=== PATIENT | female | born 1980 | race American Indian/Alaskan Native ===

== ENCOUNTER 2020-10-12 11:15 | Emergency (ER) | payer BC ==
[2020-10-12] MEDS ORDERED: ONDANSETRON 4 MG/2 ML INJ IV ONE (11:18)
[2020-10-12] MEDS ORDERED: MORPHINE 4 MG/1 ML INJ IV ONE (11:19)
--- NOTE | 2020-10-12 11:38 | Emergency Department Report ---
ED Female HPI - General Chief complaint: Abdominal Pain Stated complaint: RT SIDE FLANK PAIN Time Seen by Provider: 10/12/20 11:18 Source: patient Mode of arrival: Wheelchair Limitations: No Limitations - History of Present Illness Initial comments: Chief complaint: Pelvic pain, feeling really weak HPI: This is a 40-year-old female -0-3-0 who is currently 8 weeks who presents with severe right pelvic pain for 1 day. She was referred from [facility] per EMS. concern for ectopic . Patient has had 2 miscarriages. She has had 1 ectopic requiring salpingectomy. She has tenderness in intermittent 10 out of 10 dull throbbing sharp pain. No radiation. She denies vaginal bleeding. Blood type AB+ patient was significantly tachycardic at the clinic 124 bpm Additional medical history includes anemia and asthma. MD Complaint: pelvic pain -: Gradual, days(s) (1 day) Severity: severe Severity scale (0 -10): 10 Quality: cramping, sharp, dull Consistency: intermittent Improves with: none Worsens with: none Associated Symptoms: weakness, other (Patient feels very weak) - Related Data Home Medications Medication Instructions Recorded Confirmed Last Taken Pnv No.95/Ferrous Fum/Folic AC 1 tab PO DAILY 11/03/15 11/03/15 10/28/15 [ Vitamins Tablet] Previous Rx's Medication Instructions Recorded Last Taken Type DOXYCYCLINE Hyclate [Vibramycin 100 mg PO Q12HR #14 capsule 11/03/15 Unknown Rx CAP] Ibuprofen [Motrin] 800 mg PO Q8HR PRN #30 tablet 11/03/15 Unknown Rx Methylergonovine [Methergine] 0.2 mg PO Q8HR #6 tablet 11/03/15 Unknown Rx Ondansetron [Zofran Odt] 4 mg PO Q8HR PRN #10 tab.rapdis 10/12/20 Unknown Rx Allergies Allergy/AdvReac Type Severity Reaction Status Date / Time No Known Allergies Allergy Verified 11/03/15 07:39 ED Review of Systems ROS: Stated complaint: RT SIDE FLANK PAIN Other details as noted in HPI Comment: All other systems reviewed and negative Constitutional: malaise. denies: fever Respiratory: denies: cough, orthopnea, shortness of breath Cardiovascular: denies: chest pain Gastrointestinal: abdominal pain Genitourinary: denies: urgency, dysuria, frequency, hematuria, discharge, abnormal menses, dyspareunia Musculoskeletal: denies: back pain ED Past Medical Hx - Past Medical History Previous Medical History?: Yes Hx Sickle Cell Disease: No Hx Headaches / Migraines: Yes Hx Asthma: Yes (SEASONAL) Additional medical history: Anemia, ectopic - Surgical History Past Surgical History?: Yes Additional Surgical History: Salpingectomy - Family History Family history: hypertension - Social History Smoking Status: Never Smoker Substance Use Type: None - Medications Home Medications: Home Medications Medication Instructions Recorded Confirmed Last Taken Type DOXYCYCLINE Hyclate [Vibramycin 100 mg PO Q12HR #14 capsule 11/03/15 Unknown Rx CAP] Ibuprofen [Motrin] 800 mg PO Q8HR PRN #30 tablet 11/03/15 Unknown Rx Methylergonovine [Methergine] 0.2 mg PO Q8HR #6 tablet 11/03/15 Unknown Rx Pnv No.95/Ferrous Fum/Folic AC 1 tab PO DAILY 11/03/15 11/03/15 10/28/15 History [ Vitamins Tablet] Ondansetron [Zofran Odt] 4 mg PO Q8HR PRN #10 tab.rapdis 10/12/20 Unknown Rx ED Physical Exam - General Limitations: No Limitations General appearance: alert, other (Patient appears in severe pain, she appears very uncomfortable) - Head Head exam: Present: atraumatic, normocephalic - Eye Eye exam: Present: normal appearance - ENT ENT exam: Present: mucous membranes moist - Neck Neck exam: Present: normal inspection, full ROM - Respiratory Respiratory exam: Present: normal lung sounds bilaterally. Absent: respiratory distress, wheezes, rales, rhonchi - Cardiovascular Cardiovascular Exam: Present: regular rate, normal rhythm, normal heart sounds. Absent: systolic murmur, diastolic murmur, rubs, gallop - GI/Abdominal GI/Abdominal exam: Present: soft, tenderness, guarding, rebound, normal bowel sounds. Absent: distended - Extremities Exam Extremities exam: Present: normal inspection - Neurological Exam Neurological exam: Present: alert, oriented X3 - Psychiatric Psychiatric exam: Present: normal affect, normal mood - Skin Skin exam: Present: warm, dry, intact, normal color. Absent: rash ED Course Vital Signs 10/12/20 10/12/20 10/12/20 11:22 11:29 11:31 Temperature Pulse Rate 88 73 Respiratory 16 37 H Rate Blood Pressure 102/61 Blood Pressure 123/77 [Right] O2 Sat by Pulse 98 100 100 Oximetry 10/12/20 10/12/20 10/12/20 11:45 11:51 12:01 Temperature 98.8 F Pulse Rate 69 66 Respiratory 33 H 15 Rate Blood Pressure 102/61 100/60 Blood Pressure [Right] O2 Sat by Pulse 100 97 Oximetry 10/12/20 10/12/20 12:15 13:32 Temperature Pulse Rate 71 68 Respiratory 18 19 Rate Blood Pressure 100/60 100/60 Blood Pressure [Right] O2 Sat by Pulse 99 100 Oximetry - Reevaluation(s) Reevaluation #1: 10/12/20 13:31 Patient does not have any abdominal tenderness on exam. She states that she feels weak and dizzy. She does not have any pain at this time. ED Medical Decision Making - Lab Data Result diagrams: 10/12/20 13:03 10/12/20 13:03 Laboratory Results - last 24 hr 10/12/20 10/12/20 10/12/20 13:03 13:03 13:03 WBC 5.6 RBC 4.45 Hgb 12.3 Hct 37.0 MCV 83 MCH 28 MCHC 33 RDW 13.6 Plt Count 187 Lymph % (Auto) 21.9 [place] % (Auto) 4.5 Eos % (Auto) 0.3 Baso % (Auto) 0.3 Lymph # (Auto) 1.2 [place] # (Auto) 0.3 Eos # (Auto) 0.0 Baso # (Auto) 0.0 Seg Neutrophils % 73.0 H Seg Neutrophils # 4.1 Sodium 137 Potassium 3.6 Chloride 103.6 Carbon Dioxide 22 Anion Gap 15 BUN 10 Creatinine 0.6 Estimated GFR > 60 BUN/Creatinine Ratio 17 Glucose 91 Calcium 9.7 HCG, Quant 28664 H - Radiology Data Radiology results: report reviewed Patient Name: FRANCISCO JAVIER PRUITT Gender: Female Date of : 1980 Referring Provider: KISHAN ROSEN Organization: [facility] Accession Number: [id number] Requested Date: October 12, 2020 11:19 Report Status: Final Requested Procedure: 1 Procedure Description: US OB <= 14 weeks fetus Modality: US Findings Reporting MD: Jamel Cowart Dictation Time: October 12, 2020 12:17 Lan Engineer: Not available Automatic Glove Former Date: ULTRASOUND OBSTETRIC INDICATION: Right pelvic pain, history of ectopic . TECHNIQUE: Transabdominal and Transvaginal. COMPARISON: None available. FINDINGS: GESTATIONAL SAC: Well-defined oval shape and intrauterine in location. YOLK SAC: No significant abnormality. EMBRYO/FETUS: A single pole is identified without visualization of cardiac activity. - [place]-Rump Length = 0.7 cm = 6 weeks, 4 day(s). - Heart Rate = 0 beats per minute. ADNEXA: There is a 1.8 cm right corpus luteal cyst. No other significant abnormality. FREE FLUID: None. ADDITIONAL FINDINGS: A probable small area of subchorionic hemorrhage is seen measuring up to 8 mm. IMPRESSION: 1. Single intrauterine with estimated age of 6 weeks, 4 days without identification of cardiac activity. 2. Probable small area of subchorionic hemorrhage as above. 3. No other acute abnormality of the pelvis. Signer Name: Jamel Cowart MD Signed: 10/12/2020 12:17 PM Workstation Name: [id number] - Medical Decision Making 1. Threatened miscarriage, right lower quadrant pain: Ultrasound confirmed IUP. Without persistent tenderness or leukocytosis I do not suspect acute appendicitis. No vaginal bleeding. Patient is RH+. 2. Dehydration due to poor p.o. intake and nausea causing generalized weakness. 3. Fatigue due to work exhaustion. 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 No indication of anemia. H&H is normal. Patient received IV fluid therapy. Prescribed Zofran. Critical care attestation.: If time is entered above; I have spent that time in minutes in the direct care of this critically ill patient, excluding procedure time. ED Disposition Clinical Impression: Threatened miscarriage, Dehydration Disposition: DC-01 TO HOME OR SELFCARE Is pt being admited?: No Does the pt Need Aspirin: No Condition: Stable Instructions: Abdominal Pain (ED), Threatened Miscarriage Prescriptions: Ondansetron [Zofran Odt] 4 mg PO Q8HR PRN #10 tab.rapdis PRN Reason: Nausea Referrals: DIANA SOLIMAN MD [Staff Physician] - 3-5 Days
--- NOTE | 2020-10-12 13:21 | Ultrasound Report ---
ULTRASOUND OBSTETRIC INDICATION: Right pelvic pain, history of ectopic . TECHNIQUE: Transabdominal and Transvaginal. COMPARISON: None available. FINDINGS: GESTATIONAL SAC: Well-defined oval shape and intrauterine in location. YOLK SAC: No significant abnormality. EMBRYO/FETUS: A single pole is identified without visualization of cardiac activity. - [place]-Rump Length = 0.7 cm = 6 weeks, 4 day(s). - Heart Rate = 0 beats per minute. ADNEXA: There is a 1.8 cm right corpus luteal cyst. No other significant abnormality. FREE FLUID: None. ADDITIONAL FINDINGS: A probable small area of subchorionic hemorrhage is seen measuring up to 8 mm. IMPRESSION: 1. Single intrauterine with estimated age of 6 weeks, 4 days without identification of feta l cardiac activity. 2. Probable small area of subchorionic hemorrhage as above. 3. No other acute abnormality of the pelvis. Signer Name: Jamel Cowart MD Signed: 10/12/2020 1:17 PM Workstation Name: [id number]
--- NOTE | 2020-10-12 13:21 | Ultrasound Report ---
ULTRASOUND OBSTETRIC INDICATION: Right pelvic pain, history of ectopic . TECHNIQUE: Transabdominal and Transvaginal. COMPARISON: None available. FINDINGS: GESTATIONAL SAC: Well-defined oval shape and intrauterine in location. YOLK SAC: No significant abnormality. EMBRYO/FETUS: A single pole is identified without visualization of cardiac activity. - [place]-Rump Length = 0.7 cm = 6 weeks, 4 day(s). - Heart Rate = 0 beats per minute. ADNEXA: There is a 1.8 cm right corpus luteal cyst. No other significant abnormality. FREE FLUID: None. ADDITIONAL FINDINGS: A probable small area of subchorionic hemorrhage is seen measuring up to 8 mm. IMPRESSION: 1. Single intrauterine with estimated age of 6 weeks, 4 days without identification of feta l cardiac activity. 2. Probable small area of subchorionic hemorrhage as above. 3. No other acute abnormality of the pelvis. Signer Name: Jamel Cowart MD Signed: 10/12/2020 1:17 PM Workstation Name: [id number]
[2020-10-12] MEDS ORDERED: SODIUM CHLORIDE 0.9% 1000 ML 1,000 ML IV ONE (13:30)
[2020-10-12 13:34] LABS: Blood Urea Nitrogen 10 mg/dL (7-17); Calcium 9.7 mg/dL (8.4-10.2); Hemolysis Index 5
[2020-10-12 13:39] LABS: Basophils % (Auto) 0.3 % (0.0-1.8); Eosinophils % (Auto) 0.3 % (0.0-4.3); Hemoglobin 12.3 gm/dl (10.1-14.3); Lymphocytes # (Auto) 1.2 K/mm3 (1.2-5.4); Lymphocytes % (Auto) 21.9 % (13.4-35.0); Mean Corpuscular HGB Conc 33 % (30-34); Mean Corpuscular Volume 83 fl (79-97); Monocytes # (Auto) 0.3 K/mm3 (0.0-0.8); Monocytes % (Auto) 4.5 % (0.0-7.3); Platelet Count 187 K/mm3 (140-440); Red Blood Count 4.45 M/mm3 (3.65-5.03); Red Cell Distribution Width 13.6 % (13.2-15.2)
[2020-10-12 13:51] LABS: BUN/Creatinine Ratio 17
[2020-10-12] MEDS ORDERED: ACETAMINOPHEN 500 MG TAB PO ONE (13:57)
[2020-10-12 16:57] VITALS: BP 121/59
== END 2020-10-12 16:50 | disposition home or self-care (01) ==
LOC: ED 11:15
DX: O20.0 Threatened abortion (principal); O26.892 Other specified pregnancy related conditions, second trimester; E86.0 Dehydration; G43.909 Migraine, unspecified, not intractable, without status migrainosus; J45.909 Unspecified asthma, uncomplicated; Z3A.08 8 weeks gestation of pregnancy; Z90.89 Acquired absence of other organs; Z79.1 Long term (current) use of non-steroidal anti-inflammatories (NSAID); Z79.899 Other long term (current) drug therapy
CPT/HCPCS: 36415; 76801; 76817; 80048; 84702; 85025; 96361; 96374; 96375; 99284; J2270; J2405; J7030

== ENCOUNTER 2020-11-01 09:05 | Emergency (ER) | payer BC ==
[2020-11-01 10:04] LABS: Basophils # (Auto) 0.1 K/mm3 (0.0-0.1); Basophils % (Auto) 1.6 % (0.0-1.8); Hematocrit 35.9 % (30.3-42.9); Hemoglobin 11.7 gm/dl (10.1-14.3); Lymphocytes # (Auto) 1.2 K/mm3 (1.2-5.4); Lymphocytes % (Auto) 27.3 % (13.4-35.0); Mean Corpuscular HGB Conc 33 % (30-34); Mean Corpuscular Volume 84 fl (79-97); Monocytes # (Auto) 0.3 K/mm3 (0.0-0.8); Platelet Count 194 K/mm3 (140-440); Red Blood Count 4.29 M/mm3 (3.65-5.03); Red Cell Distribution Width 13.7 % (13.2-15.2)
[2020-11-01 10:14] LABS: INR 1.01 (0.87-1.13)
[2020-11-01 10:15] LABS: Partial Thromboplastin Time 29.9 Sec. (24.2-36.6)
--- NOTE | 2020-11-01 10:37 | Emergency Department Report ---
ED HPI - General Chief complaint: Vaginal Bleeding Stated complaint: 10WKS / SLIGHT PAIN/ NAUSEA Time Seen by Provider: 11/01/20 09:43 Source: patient Mode of arrival: Ambulatory Limitations: No Limitations - History of Present Illness Initial comments: This is a [age]-year-old female nontoxic, well nourished in appearance, no acute signs of distress presents to the ED with c/o of vaginal bleeding x1 day. Patient stated yesterday she noticed some spotting last night and mostly after she wipes. Patient denies any abdominal or pelvic pain. Patient denies any vaginal discharge or foul odor. Patient denies any nausea, vomiting, chest pain, shortness of breathe, fever, chills, headache, stiff neck, numbness, tingling. Patient denies any urinary symptoms. Patient denies any allergies. Past medical history includes ectopic . -: days(s) Radiation: none Severity scale (0 -10): 0 Improves with: none Worsens with: none Associated symptoms: vaginal bleeding. denies: nausea/vomiting, vaginal discharge, abdominal pain, dysuria, headache, vision changes, malaise, dyspa ruenia, rash, seizure, shortness of breath, syncope, weakness Vaginal bleeding: light :: Yes Number of weeks : 10 Pre- care: followed by OB - Related Data Home Medications Medication Instructions Recorded Confirmed Last Taken Pnv No.95/Ferrous Fum/Folic AC 1 tab PO DAILY 11/03/15 11/03/15 10/28/15 [ Vitamins Tablet] Previous Rx's Medication Instructions Recorded Last Taken Type DOXYCYCLINE Hyclate [Vibramycin 100 mg PO Q12HR #14 capsule 11/03/15 Unknown Rx CAP] Ibuprofen [Motrin] 800 mg PO Q8HR PRN #30 tablet 11/03/15 Unknown Rx Methylergonovine [Methergine] 0.2 mg PO Q8HR #6 tablet 11/03/15 Unknown Rx Ondansetron [Zofran Odt] 4 mg PO Q8HR PRN #10 tab.rapdis 10/12/20 Unknown Rx Acetaminophen/Codeine [Tylenol 1 tab PO Q6H PRN #12 tab 11/01/20 Unknown Rx /Codeine # 3 tab] Misoprostol [Cytotec] 200 mcg VG ONCE #4 tablet 11/01/20 Unknown Rx Allergies Allergy/AdvReac Type Severity Reaction Status Date / Time No Known Allergies Allergy Verified 11/01/20 09:22 ED Review of Systems ROS: Stated complaint: 10WKS / SLIGHT PAIN/ NAUSEA Other details as noted in HPI Comment: All other systems reviewed and negative Constitutional: denies: chills, fever Eyes: denies: eye pain, eye discharge, vision change ENT: denies: ear pain, throat pain Respiratory: denies: cough, shortness of breath, wheezing Cardiovascular: denies: chest pain, palpitations Endocrine: no symptoms reported Gastrointestinal: denies: abdominal pain, nausea, diarrhea Genitourinary: abnormal menses. denies: urgency, dysuria, frequency, hematuria, discharge, dyspareunia Musculoskeletal: denies: back pain, joint swelling, arthralgia Skin: denies: rash, lesions Neurological: denies: headache, weakness, paresthesias Psychiatric: denies: anxiety, depression Hematological/Lymphatic: denies: easy bleeding, easy bruising ED Past Medical Hx - Past Medical History Hx Sickle Cell Disease: No Hx Headaches / Migraines: Yes Hx Asthma: Yes (SEASONAL) Additional medical history: Anemia, ectopic - Surgical History Additional Surgical History: Salpingectomy - Social History Smoking Status: Never Smoker Substance Use Type: None - Medications Home Medications: Home Medications Medication Instructions Recorded Confirmed Last Taken Type DOXYCYCLINE Hyclate [Vibramycin 100 mg PO Q12HR #14 capsule 11/03/15 Unknown Rx CAP] Ibuprofen [Motrin] 800 mg PO Q8HR PRN #30 tablet 11/03/15 Unknown Rx Methylergonovine [Methergine] 0.2 mg PO Q8HR #6 tablet 11/03/15 Unknown Rx Pnv No.95/Ferrous Fum/Folic AC 1 tab PO DAILY 11/03/15 11/03/15 10/28/15 History [ Vitamins Tablet] Ondansetron [Zofran Odt] 4 mg PO Q8HR PRN #10 tab.rapdis 10/12/20 Unknown Rx Acetaminophen/Codeine [Tylenol 1 tab PO Q6H PRN #12 tab 11/01/20 Unknown Rx /Codeine # 3 tab] Misoprostol [Cytotec] 200 mcg VG ONCE #4 tablet 11/01/20 Unknown Rx ED Physical Exam - General Limitations: No Limitations General appearance: alert, in no apparent distress - Head Head exam: Present: atraumatic, normocephalic - Eye Eye exam: Present: normal appearance - Neck Neck exam: Present: normal inspection, full ROM. Absent: lymphadenopathy - Respiratory Respiratory exam: Absent: respiratory distress - Cardiovascular Cardiovascular Exam: Present: regular rate - GI/Abdominal GI/Abdominal exam: Present: soft, normal bowel sounds. Absent: distended, tenderness, guarding, rebound, rigid, diminished bowel sounds - Extremities Exam Extremities exam: Present: full ROM - Back Exam Back exam: Present: normal inspection, full ROM. Absent: tenderness, CVA tenderness (R), CVA tenderness (L), muscle spasm, paraspinal tenderness, vertebral tenderness, rash noted - Neurological Exam Neurological exam: Present: alert, oriented X3, normal gait - Psychiatric Psychiatric exam: Present: normal affect, normal mood - Skin Skin exam: Present: warm, dry, intact, normal color. Absent: rash ED Course Vital Signs 11/01/20 11/01/20 09:26 12:07 Temperature 98.4 F Pulse Rate 67 74 Respiratory 20 18 Rate Blood Pressure 99/63 Blood Pressure 103/62 [Left] O2 Sat by Pulse 100 100 Oximetry - Reevaluation(s) Reevaluation #1: 11/01/20 10:38 Patient is speaking in full sentences with no signs of distress noted. - Consultations Consultation #1: 11/01/20 13:33 Patient has been consulted with Trini Gaspar (OBGYN) about patient history, physical exam, and labs/imaging results and patient to receive Cytotec 800 mcg now vaginally and 800 mcg cytotec prescription at discharge in 8 hours and to follow-up in office in 3 to 5 days. ED Medical Decision Making - Lab Data Result diagrams: 11/01/20 09:52 Lab Results 11/01/20 11/01/20 11/01/20 Range/Units 09:52 09:52 09:52 WBC 4.6 (4.5-11.0) K/mm3 RBC 4.29 (3.65-5.03) M/mm3 Hgb 11.7 (10.1-14.3) gm/dl Hct 35.9 (30.3-42.9) % MCV 84 (79-97) fl MCH 27 L (28-32) pg MCHC 33 (30-34) % RDW 13.7 (13.2-15.2) % Plt Count 194 (140-440) K/mm3 Lymph % (Auto) 27.3 (13.4-35.0) % [place] % (Auto) 6.0 (0.0-7.3) % Eos % (Auto) 1.0 (0.0-4.3) % Baso % (Auto) 1.6 (0.0-1.8) % Lymph # (Auto) 1.2 (1.2-5.4) K/mm3 [place] # (Auto) 0.3 (0.0-0.8) K/mm3 Eos # (Auto) 0.0 (0.0-0.4) K/mm3 Baso # (Auto) 0.1 (0.0-0.1) K/mm3 Seg Neutrophils % 64.1 (40.0-70.0) % Seg Neutrophils # 2.9 (1.8-7.7) K/mm3 PT (12.2-14.9) Sec. INR (0.87-1.13) APTT (24.2-36.6) Sec. HCG, Quant 5867 H (0-4) mIU/mL Urine Color (Yellow) Urine Turbidity (Clear) Urine pH (5.0-7.0) Ur Specific [place] (1.003-1.030) Urine Protein (Negative) mg/dL Urine Glucose (UA) (Negative) mg/dL Urine Ketones (Negative) mg/dL Urine Blood (Negative) Urine Nitrite (Negative) Urine Bilirubin (Negative) Urine Urobilinogen (<2.0) mg/dL Ur Leukocyte Esterase (Negative) Urine WBC (Auto) (0.0-6.0) /HPF Urine RBC (Auto) (0.0-6.0) /HPF U Epithel Cells (Auto) (0-13.0) /HPF Urine Mucus /HPF Blood Type AB POSITIVE Ord Rhogam Gestat Weeks Rh pos WEEKS 11/01/20 11/01/20 Range/Units 09:52 Unknown WBC (4.5-11.0) K/mm3 RBC (3.65-5.03) M/mm3 Hgb (10.1-14.3) gm/dl Hct (30.3-42.9) % MCV (79-97) fl MCH (28-32) pg MCHC (30-34) % RDW (13.2-15.2) % Plt Count (140-440) K/mm3 Lymph % (Auto) (13.4-35.0) % [place] % (Auto) (0.0-7.3) % Eos % (Auto) (0.0-4.3) % Baso % (Auto) (0.0-1.8) % Lymph # (Auto) (1.2-5.4) K/mm3 [place] # (Auto) (0.0-0.8) K/mm3 Eos # (Auto) (0.0-0.4) K/mm3 Baso # (Auto) (0.0-0.1) K/mm3 Seg Neutrophils % (40.0-70.0) % Seg Neutrophils # (1.8-7.7) K/mm3 PT 13.8 (12.2-14.9) Sec. INR 1.01 (0.87-1.13) APTT 29.9 (24.2-36.6) Sec. HCG, Quant (0-4) mIU/mL Urine Color Yellow (Yellow) Urine Turbidity Slightly-cloudy (Clear) Urine pH 5.0 (5.0-7.0) Ur Specific [place] 1.026 (1.003-1.030) Urine Protein 30 mg/dl (Negative) mg/dL Urine Glucose (UA) Neg (Negative) mg/dL Urine Ketones Neg (Negative) mg/dL Urine Blood Sm (Negative) Urine Nitrite Neg (Negative) Urine Bilirubin Neg (Negative) Urine Urobilinogen < 2.0 (<2.0) mg/dL Ur Leukocyte Esterase Sm (Negative) Urine WBC (Auto) 6.0 (0.0-6.0) /HPF Urine RBC (Auto) 2.0 (0.0-6.0) /HPF U Epithel Cells (Auto) 5.0 (0-13.0) /HPF Urine Mucus 1+ /HPF Blood Type Ord Rhogam Gestat Weeks WEEKS - Radiology Data [facility] [address] [place] [address] Ultrasound Report Signed Patient: FRANCISCO JAVIER PRUITT MR#: [id number] : 1980 Acct:[id number] Age/Sex: 40 / F ADM Date: 11/01/20 Loc: ED Attending Dr: Ordering Physician: SHEILA MACK NP Date of Service: 11/01/20 Procedure(s): US OB <= 14 weeks fetus Accession Number(s): [id number] cc: SHEILA MACK NP Limited OB Ultrasound HISTORY: vaginal bleeding. TECHNIQUE: Grayscale and color imaging performed. COMPARISON: Ultrasound from 10/12/2020 FINDINGS: Uterus measures 9.6 x 5.9 x 6.5 cm with endometrial echo complex measuring 3 cm. There is a gestational sac which has a mildly crescentic appearance on today's exam. Mean diameter is 29 mm which corresponds with an EGA of 8 weeks 0 days. There was previously a tiny pole which is not demonstrated on this exam. Left ovary is not visualized. Right ovary is normal in size and contains a 1.4 cm simple cyst which is likely functional. No significant pelvic free fluid. IMPRESSION: 1. Empty gestational sac on today's exam with nondemonstration of the previously seen pole on the provided images. Correlate with exam findings and beta hCG level. 2. Left ovary not visualized. Signer Name: Timbo Muro MD Signed: 11/01/2020 1:11 PM Workstation Name: [id number] Transcribed By: KARLA Dictated By: Timbo Muro MD Electronically Authenticated By: Timbo Muro MD Signed Date/Time: 11/01/20 1311 DD/ 1309 TD/TT: - Medical Decision Making This is a 40-year-old female presents with demise. Patient is stable and was examined by me. Normal abdominal exam. US OB obtained and dictated by the radiologist. Ua obtained. Quantative serum test obtained. Patient notified of the US report with no questions noted by the patient. Patient was instructed f/u with [facility] in 3-5 days. RH factor positive. Patient received Cytotec at discharge. Labs within normal limits. At time of discharge, the patient does not seem toxic or ill in appearance. No acute signs of distress noted. Patient agrees to discharge treatment plan of care. No further questions noted by the patient. Critical care attestation.: If time is entered above; I have spent that time in minutes in the direct care of this critically ill patient, excluding procedure time. ED Disposition Clinical Impression: demise Disposition: DC-01 TO HOME OR SELFCARE Is pt being admited?: No Does the pt Need Aspirin: No Condition: Stable Instructions: Misoprostol tablets, Demise Additional Instructions: Follow-up with a [facility] doctor in 3-5 days or if symptoms worsen and continue return to emergency room as soon as possible. Apply 800 mcg of Cytotec to vagina around 10:30 PM today. Prescriptions: Misoprostol [Cytotec] 200 mcg VG ONCE #4 tablet Acetaminophen/Codeine [Tylenol /Codeine # 3 tab] 1 tab PO Q6H PRN #12 tab PRN Reason: Pain , Severe (7-10) Referrals: PRIMARY CARE, [Primary Care Provider] - 3-5 Days TRINI GARDNER MD [Staff Physician] - 3-5 Days Forms: Work/School Release Form(ED) Time of Disposition: 14:11
[2020-11-01 12:08] VITALS: BP 103/62
[2020-11-01 12:21] LABS: Bilirubin,Urine NEG (Negative); Blood,Urine SM (Negative); Color,Urine Yellow (Yellow); Mucus,Urine 1+ /HPF; Urobilinogen,Urine < 2.0 mg/dL (<2.0)
--- NOTE | 2020-11-01 13:16 | Ultrasound Report ---
Limited OB Ultrasound HISTORY: vaginal bleeding. TECHNIQUE: Grayscale and color imaging performed. COMPARISON: Ultrasound from 10/12/2020 FINDINGS: Uterus measures 9.6 x 5.9 x 6.5 cm with endometrial echo complex measuring 3 cm. There is a gestational sac which has a mildly crescentic appearance on today's exam. Mean diameter is 29 mm which corresponds with an EGA of 8 weeks 0 days. There was previously a tiny pole which is not demonstrated on this exam. Left ovary is not visualized. Right ovary is normal in size and contains a 1.4 cm simple cyst which i s likely functional. No significant pelvic free fluid. IMPRESSION: 1. Empty gestational sac on today's exam with nondemonstration of the previously seen pole on t he provided images. Correlate with exam findings and beta hCG level. 2. Left ovary not visualized. Signer Name: Timbo Muro MD Signed: 11/01/2020 1:11 PM Workstation Name: [id number]
[2020-11-01] MEDS ORDERED: HYDROcodone/ACETAMINOPHEN 10-325MG TAB PO ONE (14:07)
[2020-11-01] MEDS ORDERED: miSOPROStol 200 MCG TAB VG ONE (15:00)
== END 2020-11-01 15:12 | disposition home or self-care (01) ==
LOC: ED 09:05
DX: O02.1 Missed abortion (principal); G43.909 Migraine, unspecified, not intractable, without status migrainosus; J45.909 Unspecified asthma, uncomplicated
CPT/HCPCS: 36415; 76801; 81001; 84702; 85025; 85610; 85730; 86900; 86901

== ENCOUNTER 2020-11-12 15:18 | Observation (INO) | payer BC ==
[2020-11-12] MEDS ORDERED: SODIUM CHLORIDE 0.9% 1000 ML 1,000 ML IV ONE ×2 (16:13)
--- NOTE | 2020-11-12 16:14 | History and Physical Report ---
History of Present Illness Date of examination: 11/12/20 Date of admission: 11/12/20 Chief complaint: miscarriage History of present illness: Dictating history and physical on patient from the emergency room. The patient has a history of ultrasound in the office (recently completed miscarriage 8 to 10 weeks . She is a 40-year-old - [place] female with a history of 4 pregnancies and history of 3 miscarriages. She was needed use of control. She is . The patient is being prepped for a suction curettage. On observation basis. The patient has no allergies she has been to be treated for the 3 miscarriages in the past. And at the present we want to do D&C suction curettage for incomplete miscarriage today. Past History Past Medical History: no pertinent history Past Surgical History: D&C (3 d&c for misc) Family/Genetic History: none Social history: - Obstetrical History : 4 Para: 3 Hx # Term Pregnancies: 0 Number of Pregnancies: 0 Spontaneous Abortions: 3 Induced : 0 Medications and Allergies Allergies Allergy/AdvReac Type Severity Reaction Status Date / Time No Known Allergies Allergy Verified 11/01/20 09:22 Home Medications Medication Instructions Recorded Confirmed Last Taken Type DOXYCYCLINE Hyclate [Vibramycin 100 mg PO Q12HR #14 capsule 11/03/15 Unknown Rx CAP] Ibuprofen [Motrin] 800 mg PO Q8HR PRN #30 tablet 11/03/15 Unknown Rx Methylergonovine [Methergine] 0.2 mg PO Q8HR #6 tablet 11/03/15 Unknown Rx Pnv No.95/Ferrous Fum/Folic AC 1 tab PO DAILY 11/03/15 11/03/15 10/28/15 History [ Vitamins Tablet] Ondansetron [Zofran Odt] 4 mg PO Q8HR PRN #10 tab.rapdis 10/12/20 Unknown Rx Acetaminophen/Codeine [Tylenol 1 tab PO Q6H PRN #12 tab 11/01/20 Unknown Rx /Codeine # 3 tab] Misoprostol [Cytotec] 200 mcg VG ONCE #4 tablet 11/01/20 Unknown Rx Review of Systems All systems: negative - Physical Exam Breasts: Cardiovascular: Regular rate, Normal S1, Normal S2 Abdomen: Positive: normal appearance, soft, normal bowel sounds. Negative: distention, tenderness Genitourinary (Female): Positive: normal external genitalia Vulva: both: normal Vagina: Positive: normal moisture. Negative: discharge Cervix: Negative: lesion, discharge Uterus: Positive: normal size, enlarged (Line enlarged ), normal contour Adnexa: both: normal Anus/Rectum: Positive: normal perianal skin, heme negative. Negative: rectal mass, hemorrhoids Extremities: Positive: normal Deep Tendon Reflex Grade: Normal +2 Results All other labs normal. Assessment and Plan incomplete misc.plan suction currettage.
--- NOTE | 2020-11-12 16:20 | Emergency Department Report ---
HPI - General Chief Complaint: Vaginal Bleeding Time Seen by Provider: 11/12/20 16:02 - HPI HPI: 40-year-old female who was at approximate 11 weeks gestation presents from her LOGGING ENGINEER's office due to an incomplete miscarriage. The patient's only histo ry is asthma. She reports that on November 01 she began to have vaginal bleeding. She quantifies the bleeding as similar to a menstrual period. She went to her LOGGING ENGINEER today for follow-up and had an ultrasound performed which revealed that she had suffered an incomplete miscarriage with retained products of conception. She was sent by her LOGGING ENGINEER to the emergency room due to the need for a D&C procedure. She states she has had some mild lower abdominal pain bilaterally. Otherwise she denies any other associated symptoms or complaints. ED Past Medical Hx - Past Medical History Previous Medical History?: Yes Hx Sickle Cell Disease: No Hx Headaches / Migraines: Yes Hx Asthma: Yes (SEASONAL) Additional medical history: Anemia, ectopic - Surgical History Additional Surgical History: Salpingectomy - Social History Smoking Status: Never Smoker - Medications Home Medications: Home Medications Medication Instructions Recorded Confirmed Last Taken Type DOXYCYCLINE Hyclate [Vibramycin 100 mg PO Q12HR #14 capsule 11/03/15 Unknown Rx CAP] Ibuprofen [Motrin] 800 mg PO Q8HR PRN #30 tablet 11/03/15 Unknown Rx Methylergonovine [Methergine] 0.2 mg PO Q8HR #6 tablet 11/03/15 Unknown Rx Pnv No.95/Ferrous Fum/Folic AC 1 tab PO DAILY 11/03/15 11/03/15 10/28/15 History [ Vitamins Tablet] Ondansetron [Zofran Odt] 4 mg PO Q8HR PRN #10 tab.rapdis 10/12/20 Unknown Rx Acetaminophen/Codeine [Tylenol 1 tab PO Q6H PRN #12 tab 11/01/20 Unknown Rx /Codeine # 3 tab] Misoprostol [Cytotec] 200 mcg VG ONCE #4 tablet 11/01/20 Unknown Rx ED Review of Systems ROS: Stated complaint: SENT BY DOC/ STATES SHE LOST BABY Other details as noted in HPI Constitutional: denies: chills, fever Eyes: denies: eye pain, vision change ENT: denies: throat pain, congestion Respiratory: denies: cough, shortness of breath Cardiovascular: denies: chest pain, palpitations Gastrointestinal: denies: abdominal pain, nausea, vomiting Genitourinary: denies: dysuria, frequency Musculoskeletal: denies: back pain, joint swelling Skin: denies: rash Neurological: denies: headache, weakness, numbness Physical Exam - Physical Exam Vital Signs: Vital Signs 11/12/20 16:08 Temperature 98.4 F Pulse Rate 83 Respiratory 16 Rate Blood Pressure 127/74 [Left] O2 Sat by Pulse 100 Oximetry General: GENERAL: Well developed and well nourished. No acute distress HEAD: Normocephalic. No obvious signs of trauma. ENT: Dry mucous membranes. EYES: Extraocular movements are intact. Pupils are equal round and reactive to light bilaterally NECK: Supple. Full ROM is intact. Trachea is midline. LUNGS: Nonlabored breathing. Equal chest rise bilaterally. Clear to auscultation bilaterally. CARDIOVASCULAR: Regular rate and rhythm. No murmurs or rubs. VASCULAR: Cap refill < 2 seconds ABDOMEN: Abdomen is soft and nondistended. There is no significant tenderness, guarding or rebound. GENITOURINARY: Deferred SKIN: Skin is warm and dry NEURO: Patient is awake, alert, and oriented. principal product manager II-XII grossly intact. No focal deficits. Normal motor and sensory exam throughout. Normal speech. MUSCULOSKELETAL: No obvious deformities. No significant tenderness. Normal ROM throughout. ED Course Vital Signs 11/12/20 16:08 Temperature 98.4 F Pulse Rate 83 Respiratory 16 Rate Blood Pressure 127/74 [Left] O2 Sat by Pulse 100 Oximetry ED Medical Decision Making - Lab Data Result diagrams: 11/12/20 16:12 11/12/20 16:21 Lab Results 11/12/20 11/12/20 11/12/20 Range/Units 16:12 16:19 16:21 WBC 5.9 (4.5-11.0) K/mm3 RBC 4.82 (3.65-5.03) M/mm3 Hgb 13.1 (10.1-14.3) gm/dl Hct 40.1 (30.3-42.9) % MCV 83 (79-97) fl MCH 27 L (28-32) pg MCHC 33 (30-34) % RDW 13.8 (13.2-15.2) % Plt Count 248 (140-440) K/mm3 Lymph % (Auto) 27.5 (13.4-35.0) % Weld % (Auto) 5.8 (0.0-7.3) % Eos % (Auto) 0.9 (0.0-4.3) % Baso % (Auto) 0.7 (0.0-1.8) % Lymph # (Auto) 1.6 (1.2-5.4) K/mm3 Weld # (Auto) 0.3 (0.0-0.8) K/mm3 Eos # (Auto) 0.1 (0.0-0.4) K/mm3 Baso # (Auto) 0.0 (0.0-0.1) K/mm3 Seg Neutrophils % 65.1 (40.0-70.0) % Seg Neutrophils # 3.8 (1.8-7.7) K/mm3 Sodium 137 (137-145) mmol/L Potassium 3.9 (3.6-5.0) mmol/L Chloride 102.7 (98-107) mmol/L Carbon Dioxide 23 (22-30) mmol/L Anion Gap 15 mmol/L BUN 9 (7-17) mg/dL Creatinine 0.6 (0.6-1.2) mg/dL Estimated GFR > 60 ml/min BUN/Creatinine Ratio 15 % Glucose 76 (65-100) mg/dL Calcium 9.4 (8.4-10.2) mg/dL Blood Type AB POSITIVE - Medical Decision Making 40-year-old female who is at 11 weeks gestation who went to her LOGGING ENGINEER's office today and was confirmed to have a incomplete miscarriage. She was sent by her LOGGING ENGINEER here for likely surgical procedure. At the time of my evaluation, Dr. Marcos, the patient's LOGGING ENGINEER was present in the ER and had performed his own evaluation. He indicated his desire to take the patient to the operating room for a D&C procedure. On my assessment of the patient, she is noted to have very dry mucous membranes. We will send basic labs, type and screen at the request of the LOGGING ENGINEER. We will also give 2 L of IV fluids given that she appears volume depleted. Her last 3 to drink was last night. At 4:20 PM, the patient has been admitted to Dr. Marcos who will take her urgently to the OR. The patient is Rh+. CBC reveals no significant leukocytosis or anemia. There are no significant electrolyte abnormalities and kidney function is normal. Critical care attestation.: If time is entered above; I have spent that time in minutes in the direct care of this critically ill patient, excluding procedure time. ED Disposition Clinical Impression: Incomplete , Dehydration Disposition: OP ADMIT IP TO THIS HOSP Is pt being admited?: Yes Condition: Stable
[2020-11-12 16:36] LABS: Basophils % (Auto) 0.7 % (0.0-1.8); Eosinophils # (Auto) 0.1 K/mm3 (0.0-0.4); Eosinophils % (Auto) 0.9 % (0.0-4.3); Hematocrit 40.1 % (30.3-42.9); Hemoglobin 13.1 gm/dl (10.1-14.3); Lymphocytes # (Auto) 1.6 K/mm3 (1.2-5.4); Lymphocytes % (Auto) 27.5 % (13.4-35.0); Mean Corpuscular HGB Conc 33 % (30-34); Mean Corpuscular Volume 83 fl (79-97); Monocytes # (Auto) 0.3 K/mm3 (0.0-0.8); Monocytes % (Auto) 5.8 % (0.0-7.3); Platelet Count 248 K/mm3 (140-440); Red Blood Count 4.82 M/mm3 (3.65-5.03); Red Cell Distribution Width 13.8 % (13.2-15.2)
[2020-11-12 16:53] LABS: Blood Urea Nitrogen 9 mg/dL (7-17); Calcium 9.4 mg/dL (8.4-10.2); Hemolysis Index 5
[2020-11-12 16:57] LABS: BUN/Creatinine Ratio 15
[2020-11-12] MEDS ORDERED: ONDANSETRON 4 MG/2 ML INJ ONE (18:51)
[2020-11-12] MEDS ORDERED: KETOROLAC 30 MG/1 ML INJ ONE (18:51)
[2020-11-12] MEDS ORDERED: dexAMETHasone 20 MG/5 ML VIAL ONE (18:51)
[2020-11-12] MEDS ORDERED: fentaNYL 100 MCG/2 ML INJ ONE (18:52)
[2020-11-12] MEDS ORDERED: MIDAZOLAM 2 MG/2 ML INJ ONE (18:52)
[2020-11-12] MEDS ORDERED: propofoL 200 MG/20 ML VIAL IV ONE (18:52)
[2020-11-12] MEDS ORDERED: PHENYLEPHRINE/NS 1,000 MCG/10 ML SYRINGE (OR USE) IV ONE (19:00)
[2020-11-12] MEDS ORDERED: LIDOCAINE MPF (2%) 20 MG/1 ML VIAL 5 ML ONE (19:00)
--- NOTE | 2020-11-12 19:30 | Anesthesia Consultation ---
Anesthesia Consult and Med Hx Date of service: 11/12/20 - Airway Anesthetic Teeth Evaluation: Good ROM Head & Neck: Adequate Mental/Hyoid Distance: Adequate Mallampati Class: Class III Intubation Access Assessment: Possibly Difficult - Pre-Operative Health Status ASA Pre-Surgery Classification: ASA2 Proposed Anesthetic Plan: General - Pulmonary Hx Smoking: No Hx Asthma: Yes (exercise induced; no recent inhaler use) Hx Respiratory Symptoms: No - Cardiovascular System Hx Hypertension: No - Central Nervous System CVA: No - Endocrine Hx Renal Disease: No Hx Liver Disease: No Hx Insulin Dependent Diabetes: No Hx Non-Insulin Dependent Diabetes: No Hx Thyroid Disease: No - Hematic Hx Anemia: No - Other Systems Hx Obesity: No - Additional Comments Anesthesia Medical History Comments: Incomplete Ab scheduled for D&C. Plan GA + stnd ASA monitors.
--- NOTE | 2020-11-12 19:30 | Anesthesia Day of Surgery ---
Anesthesia Day of Surgery - Day of Surgery Patient Examined: Yes Patient H&P Reviewed: Yes Patient is NPO: Yes
[2020-11-12] MEDS ORDERED: HYDROcodone/ACETAMINOPHEN 5-325 MG TAB PO PRN ×2 (19:32→19:50)
[2020-11-12] MEDS ORDERED: ONDANSETRON 4 MG/2 ML INJ IV PRN ×2 (19:32→19:50)
[2020-11-12] MEDS ORDERED: OXYTOCIN 10 UNIT/1 ML INJ ONE (19:35)
[2020-11-12] MEDS ORDERED: MAGNESIUM HYDROXIDE (MOM) ORAL LIQD UDC PO PRN (19:50)
[2020-11-12] MEDS ORDERED: ACETAMINOPHEN 325 MG TAB PO PRN (19:50)
[2020-11-12] MEDS ORDERED: WITCH HAZEL/ GLYCERIN PAD TP PRN (19:50)
[2020-11-12] MEDS ORDERED: PROMETHAZINE 25 MG RECT SUPP PR PRN (19:50)
[2020-11-12] MEDS ORDERED: PROMETHAZINE 25 MG TAB PO PRN (19:50)
[2020-11-12] MEDS ORDERED: diphenhydrAMINE 25 MG CAP PO PRN (19:50)
[2020-11-12] MEDS ORDERED: LANOLIN/ZINC/DIMETHICONE (LANSINOH) 7 GM TP PRN (19:50)
--- NOTE | 2020-11-12 19:56 | Procedure Note ---
Date of procedure: 11/12/20 Pre-op diagnosis: incomplete spontaneous at 11 wks Post-op diagnosis: same Anesthesia: GETA (with LMA) Surgeon: SERJIO FINLEY Estimated blood loss: other (200 CCS) Pathology: list (POCS) Specimen disposition: to lab Condition: stable Disposition: PACU
[2020-11-12] MEDS ORDERED: IBUPROFEN 600 MG TAB PO SCH (20:00)
[2020-11-12] MEDS: HYDROmorphone 1 MG/1 ML INJ IV PRN ×2 (20:03→20:13)
[2020-11-13 07:56] LABS: Hematocrit 35.5 % (30.3-42.9); Hemoglobin 11.8 gm/dl (10.1-14.3)
--- NOTE | 2020-11-13 10:10 | Discharge Summary ---
Providers - Providers Date of Admission: 11/12/20 16:05 Date of discharge: 11/13/20 Attending physician: SERJIO FINLEY MD 11/12/20 16:06 Consult to Physician [CONS] Stat Comment: Consulting Provider: SERJIO FINLEY Physician Instructions: Reason For Exam: missed ab Primary care physician: [employer] ESTATE INSPECTOR Hospitalization Condition: Stable Disposition: DC-01 TO HOME OR SELFCARE Final Discharge Diagnosis (Prints w/discharge instructions): incomplete spontaneous at 11 weeks. Time spent for discharge: 10 mins - Discharge Diagnoses (1) Dehydration Status: Acute (2) Incomplete Status: Acute Core Measure Documentation - Palliative Care Palliative Care/ Comfort Measures: Not Applicable - Core Measures Any of the following diagnoses?: none - VTE Discharge Requirements Has pt received <5 days of overlap therapy or INR<2.0: No Anticoagulant overlap therapy prescribed at discharge: No Contraindication No Overlap Therapy order at DC: Not Indicated - Acute GA Discharge Requirements Aspirin at discharge: No Reason for no aspirin on DC: Patient refusal LIZBETH/ARB for LVSD if EF <40%: Not Applicable Reason for no LIZBETH/ARB: Patient refusal Beta mohamud at discharge: No Reason for no beta mohamud on DC: Patient refusal Statin for LDL = or >100 mg/dl on DC: Not Applicable Reason for no statin on DC: Patient refusal - Heart Failure Discharge Requirements LIZBETH/ARB for LVSD if EF <40%: No Reason for no LIZBETH/ARB: Patient refusal Beta mohamud at discharge: No Reason for no beta mohamud on DC: Patient refusal - Stroke Discharge Requirements Statin for LDL = or >70 mg/dl on DC: No Reason for no statin on DC: Patient Refusal Anticoag for atrial fib/atrial flutter: Not Applicable Reason for no anticoag for AF/F on DC: Not Indicated Antithrombotic for ischemic stroke: No Reason for no antithrombotic on DC: Not Indicated Exam - Physical Exam Narrative exam: see hx of hpi. - Constitutional Vitals: Temp Pulse Resp BP Pulse Ox 98.0 F 58 L 18 94/53 100 11/13/20 07:47 11/13/20 07:47 11/13/20 07:47 11/13/20 07:47 11/13/20 07:47 Plan Activity: no restrictions Weight Bearing Status: Weight Bear as Tolerated Diet: regular Special Instructions: no heavy lifting Durable Medical Equipment Needed Upon Discharge: other (none) Care Plan Goals: Call your doctor immediately for: * Fever > 100.5 * Heavy vaginal bleeding ( >1 pad per hour) * Severe persistent headache * Shortness of breath * Reddened, hot, painful area to leg or breast CALL OFFICE TO SCHEDULE FOLLOW-UP APPOINTMENT. Follow up with: PRIMARY CARE, [Primary Care Provider] - 7 Days SERJIO FINLEY MD [Staff Physician] - 7 Days Pending Studies none
[2020-11-13 11:58] VITALS: BP 112/56
== END 2020-11-13 11:15 | disposition home or self-care (01) ==
LOC: ED 15:18 → OB 16:05
DX: O03.4 Incomplete spontaneous abortion without complication (principal); Z20.822 Contact with and (suspected) exposure to COVID-19; J45.909 Unspecified asthma, uncomplicated; G43.909 Migraine, unspecified, not intractable, without status migrainosus; E86.0 Dehydration; Z79.899 Other long term (current) drug therapy; Z98.890 Other specified postprocedural states
CPT/HCPCS: 36415; 59812; 80048; 85014; 85018; 85025; 86850; 86900; 86901; 88305; 96360; 99284; G0378; J1100; J1170; J2250; J2590; J2704; J3010; J7030; U0003; J1885; J2370; J2405

== ENCOUNTER 2021-06-03 07:02 | Day surgery (SDC) | payer BC ==
[2021-06-01 11:14] LABS: Hematocrit 40.8 % (30.3-42.9); Hemoglobin 12.7 gm/dl (10.1-14.3); Mean Corpuscular HGB Conc 31 % (30-34); Mean Corpuscular Volume 85 fl (79-97); Platelet Count 236 K/mm3 (140-440); Red Blood Count 4.79 M/mm3 (3.65-5.03); Red Cell Distribution Width 13.6 % (13.2-15.2)
[~2021-06-03 07:02] MED LIST: SODIUM CHLORIDE 0.9% IRRIG SOLN 2000 ML IR ONE
[2021-06-03] MEDS ORDERED: LACTATED RINGERS 1,000 ML ONE (07:18)
--- NOTE | 2021-06-03 07:54 | Anesthesia Day of Surgery ---
Anesthesia Day of Surgery - Day of Surgery Patient Examined: Yes Patient H&P Reviewed: Yes Patient is NPO: Yes
--- NOTE | 2021-06-03 07:55 | Anesthesia Consultation ---
Anesthesia Consult and Med Hx Date of service: 06/03/21 - Airway Anesthetic Teeth Evaluation: Good ROM Head & Neck: Adequate Mental/Hyoid Distance: Adequate Mallampati Class: Class II Intubation Access Assessment: Probably Good - Pre-Operative Health Status ASA Pre-Surgery Classification: ASA2 Proposed Anesthetic Plan: General - Pulmonary Hx Smoking: No Hx Asthma: Yes (exercise induced; no recent inhaler use) Hx Respiratory Symptoms: No - Central Nervous System Hx Psychiatric Problems: No - Endocrine Hx Insulin Dependent Diabetes: No Hx Non-Insulin Dependent Diabetes: No Hx Thyroid Disease: No - Hematic Hx Anemia: Yes Hx Sickle Cell Disease: No - Other Systems Hx Cancer: No Hx Obesity: No
[2021-06-03] MEDS ORDERED: MIDAZOLAM 2 MG/2 ML INJ IV NR (08:00)
[2021-06-03] MEDS ORDERED: LACTATED RINGERS 1,000 ML IV SCH (08:00)
[2021-06-03] MEDS ORDERED: SILVER NITRATE APPLICATOR 1 EA TP ONE (08:30)
[2021-06-03] MEDS ORDERED: LIDOCAINE MPF (2%) 20 MG/1 ML VIAL 5 ML ONE (08:31)
[2021-06-03] MEDS ORDERED: propofoL 200 MG/20 ML VIAL IV ONE ×2 (08:32→09:21)
[2021-06-03] MEDS ORDERED: MIDAZOLAM 2 MG/2 ML INJ ONE (08:32)
[2021-06-03] MEDS ORDERED: fentaNYL 100 MCG/2 ML INJ ONE (08:32)
[2021-06-03] MEDS ORDERED: HYDROmorphone 1 MG/1 ML INJ IV PRN (09:00)
[2021-06-03] MEDS ORDERED: ONDANSETRON 4 MG/2 ML INJ IV PRN (09:00)
[2021-06-03] MEDS ORDERED: ePHEDrine SULFATE 50 MG/1 ML INJ ONE (09:27)
[2021-06-03] MEDS ORDERED: SODIUM CHLORIDE 0.9% IRRIG SOLN 2000 ML IR ONE (09:40)
[2021-06-03] MEDS: HYDROmorphone 1 MG/1 ML INJ IV PRN ×3 (10:16→10:38)
[2021-06-03] MEDS ORDERED: ONDANSETRON 4 MG/2 ML INJ ONE (10:48)
[2021-06-03] MEDS ORDERED: KETOROLAC 30 MG/1 ML INJ ONE (10:48)
[2021-06-03] MEDS ORDERED: dexAMETHasone 20 MG/5 ML VIAL ONE (10:48)
[2021-06-03 11:10] VITALS: BP 106/63
--- NOTE | 2021-06-03 19:16 | Post Anesthesia Evaluation ---
- Post Anesthesia Evaluation Patient Participated: Yes Airway Patent: Yes Stable Respiratory Function: Yes Nausea/Vomiting: No Temp > 96.8F: Yes Pain Manageable: Yes Adequeate Hydration: Yes Anesthesia Complications: No Block Receding Appropriately: Not Applicable Patient on Ventilator: No
== END 2021-06-03 11:25 | disposition home or self-care (01) ==
LOC: OR 07:02
PROVIDERS: ATTEND Obstetrics & Gynecology
DX: N91.2 Amenorrhea, unspecified (principal); N97.9 Female infertility, unspecified; N85.6 Intrauterine synechiae; J45.909 Unspecified asthma, uncomplicated; Z79.899 Other long term (current) drug therapy; Z20.822 Contact with and (suspected) exposure to COVID-19; Z98.890 Other specified postprocedural states; Z86.2 Personal history of diseases of the blood and blood-forming organs and certain disorders involving the immune mechanism
CPT/HCPCS: 36415; 58555; 84703; 85027; J1100; J1170; J1885; J2250; J2405; J2704; J3010; J3490; J7120; U0003